=== PATIENT | male | born 1975 | race Caucasian/White ===

== ENCOUNTER 2024-08-21 10:16 | Emergency (ER) | payer OTHER ==
[~2024-08-21] VITALS: Ht 182.9 cm; Wt 79.4 kg
[2024-08-21] MEDS ORDERED: TAMSULOSIN 0.4 MG CAP.SR.24H PO STA (10:56)
[2024-08-21] MEDS ORDERED: ONDANSETRON HCL/PF 4 MG/2 ML VIAL IVP ONE (11:00)
[2024-08-21] MEDS ORDERED: IV NS 0.9% 500 ML BAG IV ONE (11:00)
[2024-08-21] MEDS ORDERED: KETOROLAC TROMETHAMINE 15 MG/ML VIAL IV ONE (11:00)
[2024-08-21] MEDS ORDERED: HYDROMORPHONE INJ 2 MG/ML DISP.SYRIN IV ONE (11:00)
[2024-08-21] MEDS ORDERED: NAPR-1164 PO (11:56)
[2024-08-21] MEDS ORDERED: TAMS-12 PO (11:56)
[2024-08-21 12:05] LABS: CALCIUM, SERUM 9.2 mg/dL (8.5-10.1); CREATININE 0.8 mg/dL (0.6-1.3); POTASSIUM 4.1 mmol/L (3.5-5.1)
[2024-08-21 12:10] VITALS: BP 130/69; TEMP 97.8; O2SAT 100
[2024-08-21 12:28] LABS: BASOPHILS % (AUTO) 0.4 % (0.0-2.0); EOSINOPHILS # (AUTO) 0.3 K/uL (0.0-0.7); HEMATOCRIT 41 % (39-51); HEMOGLOBIN 14.6 g/dL (13.5-17.5); LYMPHOCYTES # (AUTO) 1.1 K/uL (0.8-4.8); LYMPHOCYTES % (AUTO) 17.4 % (20.0-44.0); MEAN CORPUSCULAR HEMOGLOBIN 34 PG (26.0-33.0); MEAN CORPUSCULAR HGB CONC 35 g/dl (31.0-36.0); MEAN CORPUSCULAR VOLUME 97 fL (80-96); MONOCYTES # (AUTO) 0.5 K/uL (0.1-1.30); MONOCYTES % (AUTO) 8.4 % (2.0-12.0); NEUTROPHILS # (AUTO) 4.3 K/uL (1.8-8.9); NEUTROPHILS % (AUTO) 69.8 % (43.0-81.0); PLATELET COUNT (AUTO) 208 K/uL (150-450); RED BLOOD CELL COUNT(AUTO) 4.27 MIL/uL (4.5-6.0); RED CELL DISTRIBUTION WIDTH 12.5 % (11.5-15.0); WHITE BLOOD COUNT (AUTO) 6.2 K/uL (4.3-11.0)
[2024-08-21 12:39] LABS: APPEARANCE,URINE CLEAR (CLEAR); BILIRUBIN,URINE 1+ (NEGATIVE); BLOOD, URINE NEGATIVE Ery/uL (NEGATIVE); COLOR,URINE YELLOW (YELLOW); KETONES,URINE NEGATIVE (NEGATIVE); LEUKOCYTE ESTERASE ,URINE NEGATIVE (NEGATIVE); NITRITE, URINE NEGATIVE (NEGATIVE); PROTEIN,URINE NEGATIVE (NEGATIVE); UGLUCOSE NEGATIVE (NEGATIVE); UROBILINOGEN,URINE 0.2 EU/dL (0.2)
[2024-08-21 13:04] LABS: ADD URINE CULTURE NO; BACTERIA,URINE Few /HPF (None Seen); RBC,URINE 0-2 /HPF (0-2); SQUAMOUS EPITHELIAL CELL,UR None Seen /HPF (None Seen); WBC,URINE 0-2 /HPF (0-3)
== END 2024-08-21 12:10 | disposition home or self-care (01) ==
LOC: ER 10:38
DX: N23 Unspecified renal colic (principal); Z87.442 Personal history of urinary calculi
CPT/HCPCS: 36415; 80048-TC; 81001; 85025-TC; 87086-TC

== ENCOUNTER 2025-07-17 13:32 | Emergency (ER) | payer OTHER ==
[~2025-07-17] VITALS: Ht 185.4 cm; Wt 74.8 kg
[~2025-07-17 13:32] MED LIST: NAPR-1164 PO; TAMS-12 PO
[2025-07-17 13:48] VITALS: BP 120/57; TEMP 98.1
[2025-07-17] MEDS ORDERED: MUPI22OI2 TP (15:11)
[2025-07-17 15:20] VITALS: O2SAT 98
== END 2025-07-17 15:20 | disposition home or self-care (01) ==
LOC: ER 13:40
DX: S61.011A Laceration without foreign body of right thumb without damage to nail, initial encounter (principal); W45.0XXA Nail entering through skin, initial encounter; Y93.89 Activity, other specified; Y92.89 Other specified places as the place of occurrence of the external cause; Y99.8 Other external cause status
CPT/HCPCS: 73130-TC